=== PATIENT | female | born 1990 | race Caucasian/White ===

== ENCOUNTER 2020-04-28 13:50 | Inpatient (IN) | payer MEDICAID ==
[2020-04-28] VITALS (10 sets, daily range): BP systolic 106–120; BP diastolic 39–68; Ht 162.6 cm; Wt 77.1 kg
[~2020-04-28] VITALS: Ht 162.6 cm; Wt 77.1 kg
[~2020-04-28 13:50] MED LIST: FERROUS SULFAT325 MG PO; IBUPROFEN600 MG PO; PERCOCET 5-3251 TAB PO
[2020-04-28] MEDS ORDERED: VISTARIL25 MG PO (14:40)
[2020-04-28] MEDS ORDERED: PRENAVITE1 TAB PO (14:41)
[2020-04-28] MEDS ORDERED: ACETAMINOPHEN500 M1 PO (14:41)
[2020-04-28 15:34] LABS: BASOPHILS 0.1 % (0-2); EOSINOPHILS 0.1 % (0-7); HEMOGLOBIN 9.9 g/dL (12-16); IMMATURE GRANULOCYTES 0.4 % (0-5); LYMPHOCYTES 18.2 % (15-50); MCH 28.8 pg (26.0-34.0); MCHC 31.9 g/dL (31.0-37.0); MCV 90.1 fL (80.0-100.0); MEAN PLATELET VOLUME 10.2 fL (7.4-10.4); MONOCYTES 4.7 % (2-11); NEUTROPHILS 76.5 % (40-80); PLATELET COUNT 202 10x3/uL (130-400); RBC 3.44 10x6/uL (4.00-5.40); RDW 14.4 % (11.5-14.5); WBC 7.1 10x3/uL (4.8-10.8)
--- NOTE | 2020-04-28 19:15 | NUR ---
PT TO ROOM 1220 PER BED FROM PACU. PT AWAKE ALERT AND ORIENTED X3. C/O MILD PAIN 3/10. HEART RATE REGULAR WITHOUT ANY MURMURS OR EXTRA BEATS. LUNG SOUNDS CLEAR WITH RESP 17/MIN. ABD SOFT AND TENDER. BS HYPOACTIVE. ABD DRESSING TO LOWER ABD CLEAN DRY AND INTACT. FUNDUS FIRM MIDLINE AT UMBILICUS WITH MOD AMT OF RUBRA LOCHIA RETURNED WITH MASSAGE. MAKAYLA CARE DONE. MARTIN TO BESIDE DRAINAGE WITH SHITAL COLORED URINE NOTED IN BAG. BILATERAL BELOW THE KNEE SCD'S ON BILATERALLY. S/O AT BEDSIDE. CALL LIGHT, PHONE WITHIN REACH
--- NOTE | 2020-04-28 19:30 | NUR ---
VSS, FUNDUS FIRM MIDLINE AT UMBILICUS WITH SMALL AMOUNT OF RUBRA LOCHIA RETURNED.
--- NOTE | 2020-04-28 19:45 | NUR ---
VSS, FUNDUS FIRM MIDLINE AT UMBILICUS WITH SMALL AMT OF RUBRA LOCHIA RETURNED WITH MASSAGE.ICE PACK TO INCISION FOR COMFORT. S/O AT BEDSIDE.
--- NOTE | 2020-04-28 20:00 | NUR ---
VSS, FUNDUS FIRM MIDLINE AT UMBILICUS WITH SCANT AMT OF RUBRA LOCHIA.
--- NOTE | 2020-04-28 20:15 | NUR ---
VSS, FUNDUS FIRM MIDLINE AT UMBILICUS WITH SCANT AMT OF RUBRA LOCHIA RETURNED WITH FUNDAL MASSAGE.
[2020-04-29 00:15] VITALS: BP 104/52
--- NOTE | 2020-04-29 00:30 | NUR ---
PT RESTING QUIETLY IN BED, S/O AT BEDSIDE. IV INFUSING WITHOUT DIFFICULTY. MARTIN TO BEDSIDE DRAINAGE.
--- NOTE | 2020-04-29 03:55 | NUR ---
to room for c/o pain pt teaching regarding prn pain med and comfort measures. medicated w/ tordol per orders, fundus firm, lochia scant. no further needs expressed
[2020-04-29 04:01] VITALS: BP 105/55
[2020-04-29 04:50] LABS: BASOPHILS 0 % (0-2); EOSINOPHILS 0.1 % (0-7); HEMATOCRIT 29.5 % (36.0-48.0); IMMATURE GRANULOCYTES 0.1 % (0-5); LYMPHOCYTES 16.8 % (15-50); MCH 27.9 pg (26.0-34.0); MCHC 30.5 g/dL (31.0-37.0); MCV 91.3 fL (80.0-100.0); MEAN PLATELET VOLUME 10.7 fL (7.4-10.4); MONOCYTES 5.3 % (2-11); NEUTROPHILS 77.7 % (40-80); PLATELET COUNT 168 10x3/uL (130-400); RBC 3.23 10x6/uL (4.00-5.40); RDW 14.6 % (11.5-14.5)
[2020-04-29 04:59] LABS: WBC 9.1 10x3/uL (4.8-10.8)
--- NOTE | 2020-04-29 05:51 | NUR ---
PT RESTING QUIETLY IN BED STATES PAIN IS WELL CONTROLLED. 500 CC EMPTIED FROM MARTIN. ATTEMPTED TO CHANGE MAKAYLA PAD BUT MAKAYLA PAD FOUND CLEAN ENCOURAGED PT TO CALL IF SHE FEELS GUSH OF BLEEDING. IN NURSERY AND S/O AT BEDSIDE.
--- NOTE | 2020-04-29 06:45 | NUR ---
REPORT RECEIVED FROM Susan GONZALES RN.
--- NOTE | 2020-04-29 08:29 | NUR ---
DR. RICHARDSON HERE FOR ROUNDS. IN TO SEE PT.
--- NOTE | 2020-04-29 08:30 | NUR ---
DR RICHARDSON CALLED FOR ORDERS TO ADVANCE PT PLAN OF CARE. ORDERS RECEIVED FOR PO PAIN MANAGEMENT, MAY D/C MARTIN AND SALINE LOCK IV. PT MAY HAVE REGULAR DIET IF NO COMPLAINT OF NAUSEA.
[2020-04-29 09:00] VITALS: BP 121/70
--- NOTE | 2020-04-29 09:00 | NUR ---
TO ROOM FOR ASSESSMENT. SEE FLOWSHEET. PT SITTING UP IN BED; HAD CLEAR LIQUID BREAKFAST AND TOLERATED WITHOUT DIFFICULTY. IV INFUSINGN VIA 1VP AT 125CC/HR. FUNDUS IS FIRM 2 BELOW THE UMBILICUS, MIDLINE. LOCHIA IS SCANT/SMALL AND RUBRA. LTV INCICION IS CDI WITH DERMABOND. NO C/O PAIN AT THIS TIME. NO OTHER NEED OR CONCERNS VOICED AT THIS TIME.
--- NOTE | 2020-04-29 10:00 | NUR ---
PT REQUESTS PAIN MEDS. SCHEDULE MOTRIN AND PRN PAIN MED GIVEN.
--- NOTE | 2020-04-29 11:30 | NUR ---
CATHETER D/C'D. IV SALINE LOCKED.
--- NOTE | 2020-04-29 12:30 | NUR ---
PT ASSISTED UP TO BR. VOIDED 500CC WITHOUT DIFFICULTY. IV SITE COVERED. UP TO SHOWER.
--- NOTE | 2020-04-29 13:00 | NUR ---
PT BACK TO BED. REGULAR LUNCH GIVEN. MALE VISITOR AT BEDSIDE. BABY AT BEDSIDE IN OPEN CRIB. NO NEEDS OR CONCERNS VOICED AT THIS TIME.
--- NOTE | 2020-04-29 14:03 | NUR ---
ROUNDS MADE. PT SITTING UP IN BED HOLDING BABY. OFFERED PAIN MED; DECLINED AT THIS TIME. NO OTHER NEEDS OR CONCERNS AT THIS TIME.
--- NOTE | 2020-04-29 16:00 | NUR ---
ASSISTED PT TO BATHROOM. PT VOIDED 450CC WITHOUT DIFFICULTY. ASSISTED BACK TO BED. PT C/O GAS PAINS. MYLICON GIVEN WITH SCHEDULED MOTRIN AND PRN PAIN MED. ENCOURAGED TO AMBULATE IN HALLWAY.
--- NOTE | 2020-04-29 19:00 | NUR ---
RECEIVED SHIFT REPORT FROM SHILO HICKS RN
--- NOTE | 2020-04-29 19:20 | NUR ---
PT BOTTLE FEEDING INFANT AT THIS TIME, INFORMED PT THAT I WILL BE BACK SHORTLY THEN TO DO ASSESSMENT, PT VERBALIZES UNDERSTANDING, RATES INC PAIN 09/21, STATES "I'M DOING GOOD RIGHT NOW", DENIES NEEDS, DINNER TRAY REMOVED, FOB AT BEDSIDE
[2020-04-29 20:10] VITALS: BP 111/68
--- NOTE | 2020-04-29 20:10 | NUR ---
ASSESSMENT PER FLOW SHEET, VS OBTAINED, IV CONVERTED TO SALINE LOCK, PT UP TO BR, GAIT STEADY, VOIDED 850 MLS OF LIGHTLY BLOOD TINGED URINE BY SELF WITH NO DIFFICULTY, PT BACK TO BED, FF, ML, U/1, LITE BLEEDING NOTED WITH NO CLOTS, PT REPORTS FLATUS, NO BM, BIKINI INC WITH DERMABOND CDI WITH NO DRAINAGE NOTED, MAKAYLA PAD OVER INC FOR COMFORT AND MOISTURE CONTROL, PT REPORTS PAIN AND CRAMPING 2/10, INFORMED PT THAT I WILL ADM PAIN MED WHEN DUE, PT VERBALIZES UNDERSTANDING, STATES "I'M OK RIGHT NOW", REQUESTED AND SERVED FRESH H20, DENIES FURTHER NEEDS, SIRENA BILL, RN IN ROOM DOING INFANT ASSESSMENT
--- NOTE | 2020-04-29 21:50 | NUR ---
ADM REJI AND YESENIA PER MD ORDERS, SEE EMAR, PT REQUESTED AND SERVED SEPIDEH CALZADA, DENIES FURTHER NEEDS, FOB HOLDING AT THIS TIME
--- NOTE | 2020-04-29 21:58 | NUR ---
DR RAGLAND ON UNIT, INFORMED HER THAT I HAD RECEIVED IN SHIFT REPORT THAT PT IS ONLY SUPPOSE TO BE ON ANTIBIOTICS FOR [address], DR RAGLAND STATES "YES, THAT'S RIGHT, YOU CAN GO AHEAD AND D/C IT"
--- NOTE | 2020-04-29 22:38 | NUR ---
PT RESTING, FOB HOLDING INFANT, REPORTS PAIN 2/10, DENIES NEEDS
--- NOTE | 2020-04-29 23:28 | NUR ---
PT ANSWERER LIGHT, REQUESTS INFANT BACK TO [facility] SO SHE CAN GET SOME REST, INFORMED PT THAT I WILL TAKE INFANT TO NS[facility], BUT IF BECOMES FUSSY, I WILL BRING HER BACK TO HER, EXPLAINED TO PT THAT WE HAD TWO LEVEL TWO INFANTS AT THIS TIME, PT VERBALIZES UNDERSTANDING, DENIES FURTHER NEEDS, FOB ASLEEP AT BEDSIDE
--- NOTE | 2020-04-30 00:30 | NUR ---
PT RESTING WITH EYES CLOSED, RESP QUIET, NO DISTRESS NOTED, LEFT UNDISTURBED AT THIS TIME
--- NOTE | 2020-04-30 01:21 | NUR ---
PT RESTING WITH EYES CLOSED, AROUSES TO SOFT VERBAL STIMULATION, TO ROOM VIA OPEN CRIB CART, BANDS CHECKED, INFANT TO PT'S ARMS, PT DENIES NEEDS AT THIS TIME, FOB ASLEEP AT BEDSIDE
--- NOTE | 2020-04-30 02:25 | NUR ---
PT AWAKE, HOLDING INFANT, DENIES NEEDS AT THIS TIME, FOB ASLEEP AT BEDSIDE
[2020-04-30 03:59] VITALS: BP 123/79
--- NOTE | 2020-04-30 03:59 | NUR ---
PT AWAKE, HOLDING INFANT, VS OBTAINED, CLEAN BLANKET PROVIDED, ADM MOTRIN AND NORCO PER MD ORDERS, SEE EMAR, PT DENIES FURTHER NEEDS, FOB REQUESTED AND PROVIDED BLANKET
[2020-04-30 06:10] LABS: RAPID PLASMA REAGIN Non Reactive (Non Reactive)
[2020-04-30 06:45] VITALS: BP 111/65
--- NOTE | 2020-04-30 06:45 | NUR ---
PT AWAKE, HOLDING , INFANT TO OPEN CRIB CART, VS OBTAINED, PT REPORTS THAT SHE HASN'T BEEN UP TO VOID, PT INST ON AND VERBALIZES UNDERSTANDING ABOUT VOIDING EVERY 2-3 HOURS, PT UP TO COMMODE WITH ASSISTANCE, VOIDED LARGE AMOUNT WIHT NO DIFFICULTY, LITE BLEEDING NOTED WITH NO CLOTS, PT PLACES OWN MAKAYLA PAD ON, BACK TO BED, FF, ML, U/1, BIKINI INC WITH DERMABOND CDI WITH NO DRAINAGE NOTED, MAKAYLA PAD OVER INC FOR COMFORT AND MOISTURE CONTROL, PT REPORTS FLATUS, NO BM, BACK TO PT'S ARMS, PT RATES INC PAIN 08/21, FRESH H20 SERVED, DENIES FURTHER NEEDS, FOB ASLEEP AT BEDSIDE
--- NOTE | 2020-04-30 10:50 | NUR ---
RN TO PT BS FOR ROUNDS. PT SITTING IN BED IN NO ACUTE DISTRESS. PT DENIES ANY NEEDS AT THIS TIME. SO AT PT BS HOLDING INFANT. BREAKFAST TRAYS REMOVED FROM PT ROOM. WILL CONT TO MONITOR PT STATUS.
[2020-04-30] MEDS ORDERED: HYDROCODON-ACE1 EAC7 PO (13:13)
--- NOTE | 2020-04-30 13:25 | NUR ---
reviewed discharge instructions with pt, handouts provided for review, hard copy prescription provided to pt for norco 5/325 mg tablet, questions answered, pt and significant other voice understanding of all information provided, saline lock discontinued, catheter tip intact, gauze applied over site and secured with clear tape. tolerates procedure well.
--- NOTE | 2020-04-30 15:10 | NUR ---
rounds completed, nad noted, awake, alert, and conversant, no needs voiced, continue to monitor. call light in easy reach, bed in low position, bed brakes lockd. continue couplet care.
--- NOTE | 2020-04-30 16:52 | NUR ---
rounds completed, denies needs/concerns, in arms, bonding well with , s.o. at bedside providing support, encouraged pt to call [phone] using bedside phone with any needs/concerns. pt states understanding of all information relayed. call light in easy reach, bed in low position, side rails up x2 and bed in low position.
--- NOTE | 2020-04-30 18:23 | NUR ---
PT DISCHARGED TO HOME VIA WC WITH SIGNIFICANT OTHER, SECURED IN CARSEAT CARRIER TO PRIVATE AUTO PER NURSERY STAFF, NAD NOTED.
== END 2020-04-30 18:15 | disposition home or self-care (01) | DRG 785 ==
LOC: D.LDO 13:50 → D.LD 16:46 → D.WS 16:46
PROVIDERS: ADMIT Student in an Organized Health Care Education/Training Program; ATTEND Student in an Organized Health Care Education/Training Program
PROC: 10D00Z1 Extraction of Products of Conception, Low, Open Approach (ICD-10-PCS; principal; 2020-04-28 16:00)
PROC: 0UB70ZZ Excision of Bilateral Fallopian Tubes, Open Approach (ICD-10-PCS; 2020-04-28 16:00)
DX: O99.824 Streptococcus B carrier state complicating childbirth (principal); Z3A.38 38 weeks gestation of pregnancy; Z37.0 Single live birth; O36.8330 Maternal care for abnormalities of the fetal heart rate or rhythm, third trimester, not applicable or unspecified; O34.211 Maternal care for low transverse scar from previous cesarean delivery; Z30.2 Encounter for sterilization